=== PATIENT | male | born 1945 | race Caucasian/White ===

== ENCOUNTER 2021-06-20 08:49 | Observation (INO) ==
[2021-06-20 09:58] LABS: Basophils # 0.1 K/mcL (0.0-0.2); Basophils % 0.7 %; Eosinophils # 0.4 K/mcL (0.0-0.6); Eosinophils % 4.3 %; Hematocrit 42.3 % (37.5-50.1); Hemoglobin 13.5 g/dL (12.9-16.9); Immature Granulocytes % 0.4 % (0-4); Lymphocytes # 1.4 K/mcL (0.6-4.6); Lymphocytes % 16.3 %; Mean Corpuscular HGB Conc 31.9 g/dL (31.6-35.5); Mean Corpuscular Hemoglobin 27.7 pg (28.0-33.3); Mean Corpuscular Volume 86.7 fL (83.0-100.0); Mean Platelet Volume 9.6 fL (9.4-12.4); Monocytes # 1.3 K/mcL (0.0-1.3); Monocytes % 15.3 %; Neutrophils # 5.3 K/mcL (1.6-8.9); Platelet Count 348 K/mcL (140-400); Red Blood Count 4.88 M/mcL (4.19-5.50); Red Cell Distribution Width 13.3 % (11.5-14.5); White Blood Count 8.4 K/mcL (4.3-11.1)
[2021-06-20 10:22] LABS: Albumin 3.6 g/dL (3.5-5.7); Bilirubin,Direct 0.1 mg/dL (0.0-0.2); Bilirubin,Indirect 0.4 mg/dL (0.0-1.0); Bilirubin,Total 0.5 mg/dL (0.3-1.0); Calcium 9.4 mg/dL (8.6-10.3); Globulin 3.5 g/dL (2.4-3.5); Potassium 4.6 mEq/L (3.5-5.1); Total Protein 7.1 g/dL (6.4-8.9)
[2021-06-20 10:27] LABS: Bilirubin,Urine Negative (Negative); Blood,Urine Negative (Negative); Clarity,Urine Clear (Clear); Color,Urine Colorless (Yellow); Glucose,Urine (UA) Normal (Normal); Ketones,Urine Negative (Negative); Leukocyte Esterase,Urine Negative (Negative); Nitrite,Urine Negative (Negative); PH,Urine 6.5 pH Units (5.0-8.0); Protein,Urine Negative (Neg-Trace); Urobilinogen,Urine Normal (Normal)
[2021-06-20] MEDS ORDERED: *HR* FentaNYL (PF) 100 MCG/2 ML VIAL IVP ONE (11:12)
[2021-06-20] MEDS ORDERED: Naloxone 0.4 MG/ML INJ IVP PRN (12:04)
[2021-06-20] MEDS ORDERED: Ondansetron 4 MG/2 ML VIAL IVP PRN (12:04)
[2021-06-20] MEDS: *HR* Heparin 5,000 UNIT/ML VIAL SQ SCH ×2 (13:20→21:29)
[2021-06-20] MEDS ORDERED: Ringers Solution, Lactated 500 ML IVC ONE (14:10)
[2021-06-20] MEDS ORDERED: *HR* Belladonna Alkaloids/Opium 30 MG RECTAL SUPPOSITORY RC ONE (15:23)
[2021-06-20] MEDS ORDERED: [UNRECOGNIZED DRUG - SUPPLY] SQ SCH (18:00)
[2021-06-20] MEDS: carvediloL 6.25 MG TABLET PO SCH (21:28)
[2021-06-20] MEDS: Ranolazine 500 MG TAB.ER.12H PO SCH (21:28)
[2021-06-21] MEDS: *HR* Heparin 5,000 UNIT/ML VIAL SQ SCH ×3 (05:43→22:01)
[2021-06-21] MEDS: Ranolazine 500 MG TAB.ER.12H PO SCH ×2 (09:11→22:01)
[2021-06-21] MEDS: carvediloL 6.25 MG TABLET PO SCH ×3 (09:11→18:27)
[2021-06-21 10:40] LABS: Basophils % 0.5 %; Eosinophils # 0.2 K/mcL (0.0-0.6); Eosinophils % 2.4 %; Hematocrit 41.9 % (37.5-50.1); Hemoglobin 13.7 g/dL (12.9-16.9); Immature Granulocytes % 0.4 % (0-4); Lymphocytes # 1.5 K/mcL (0.6-4.6); Mean Corpuscular HGB Conc 32.7 g/dL (31.6-35.5); Mean Corpuscular Hemoglobin 28.4 pg (28.0-33.3); Mean Corpuscular Volume 86.9 fL (83.0-100.0); Mean Platelet Volume 9.2 fL (9.4-12.4); Monocytes # 1.1 K/mcL (0.0-1.3); Monocytes % 13.9 %; Neutrophils # 5.1 K/mcL (1.6-8.9); Platelet Count 331 K/mcL (140-400); Red Blood Count 4.82 M/mcL (4.19-5.50); Red Cell Distribution Width 13.2 % (11.5-14.5); Segmented Neutrophils % 63.8 %; White Blood Count 7.9 K/mcL (4.3-11.1)
[2021-06-21 11:00] LABS: Calcium 8.8 mg/dL (8.6-10.3); Potassium 4.5 mEq/L (3.5-5.1)
[2021-06-21] MEDS ORDERED: Isovue-300 50ML VIAL ONE (13:15)
[2021-06-21] MEDS ORDERED: *HR* FentaNYL (PF) 100 MCG/2 ML VIAL ONE ×2 (13:48→15:30)
[2021-06-21] MEDS ORDERED: *HR* Propofol 200 MG/20 ML VIAL IVP ONE (13:48)
[2021-06-21] MEDS ORDERED: Ondansetron 4 MG/2 ML VIAL IVP PRN ×2 (13:54→17:30)
[2021-06-21] MEDS ORDERED: *HR* FentaNYL (PF) 100 MCG/2 ML VIAL IVP PRN (13:54)
[2021-06-21] MEDS ORDERED: CeFAZolin Syr 2,000MG/20 ML 2,000 MG/20 ML SYRINGE IVPB ONE (14:41)
[2021-06-21] MEDS ORDERED: EPHEDrine 50 MG/ML VIAL ONE (14:59)
[2021-06-21] MEDS ORDERED: Lidocaine -MPF 2% 2 ML VIAL ONE (15:32)
[2021-06-21] MEDS ORDERED: Ondansetron 4 MG/2 ML VIAL ONE (15:32)
[2021-06-21] MEDS ORDERED: *HR* Succinylcholine 200 MG/10 ML VIAL IVP ONE (15:32)
[2021-06-21] MEDS ORDERED: *HR* Belladonna Alkaloids/Opium 30 MG RECTAL SUPPOSITORY RC PRN (17:30)
[2021-06-21] MEDS ORDERED: Naloxone 0.4 MG/ML INJ IVP PRN (17:30)
[2021-06-21] MEDS ORDERED: SUBCUTANEOUS INSULIN PUMP SQ SCH (17:30)
[2021-06-21] MEDS ORDERED: *HR* Metoprolol 5 MG/5 ML VIAL IVP ONE (18:06)
[2021-06-22 02:11] LABS: Hematocrit 41.5 % (37.5-50.1); Hemoglobin 13.6 g/dL (12.9-16.9); Mean Corpuscular HGB Conc 32.8 g/dL (31.6-35.5); Mean Corpuscular Hemoglobin 28.3 pg (28.0-33.3); Mean Corpuscular Volume 86.5 fL (83.0-100.0); Mean Platelet Volume 9.4 fL (9.4-12.4); Platelet Count 403 K/mcL (140-400); Red Cell Distribution Width 13.2 % (11.5-14.5)
[2021-06-22 02:31] LABS: Calcium 8.7 mg/dL (8.6-10.3); Potassium 4.9 mEq/L (3.5-5.1)
[2021-06-22] MEDS: *HR* Heparin 5,000 UNIT/ML VIAL SQ SCH (05:12)
[2021-06-22 05:26] VITALS: BP 151/70; PULSE 71; TEMP 98.3
[2021-06-22] MEDS: Ranolazine 500 MG TAB.ER.12H PO SCH (07:58)
[2021-06-22] MEDS: carvediloL 6.25 MG TABLET PO SCH (07:59)
[2021-06-22 08:10] VITALS: O2SAT 94
[2021-06-22] MEDS ORDERED: Aspirin 325 MG TABLET PO SCH ×2 (09:00)
[2021-06-22] MEDS ORDERED: Furosemide 40 MG TABLET PO SCH ×2 (09:00)
[2021-06-22] MEDS ORDERED: carvediloL 6.25 MG TABLET PO SCH (17:00)
== END 2021-06-22 12:11 | disposition home or self-care (01) ==
LOC: EMEROOARM 08:49 → 3ANU 08:49 → SUATTDRO 11:36 → 3ANU 12:15
PROVIDERS: ADMIT Internal Medicine; ATTEND Family Medicine